=== PATIENT | male | born 1950 | race Two or more races ===

== ENCOUNTER → 2024-07-03 | Outpatient (BNVA) | payer MEDICARE, SELFPAY | END | disposition home or self-care (01) | PROVIDERS: PCP Family Medicine; Referring Provider Family Medicine; Visit Provider Urology | DX: N40.1 Benign prostatic hyperplasia with lower urinary tract symptoms (principal); N13.8 Other obstructive and reflux uropathy; N32.81 Overactive bladder; I12.9 Hypertensive chronic kidney disease with stage 1 through stage 4 chronic kidney disease, or unspecified chronic kidney disease; E11.22 Type 2 diabetes mellitus with diabetic chronic kidney disease; N18.30 Chronic kidney disease, stage 3 unspecified; E66.9 Obesity, unspecified; Z68.28 Body mass index [BMI] 28.0-28.9, adult | CPT/HCPCS: 81003; 99212; G0463 ==

== ENCOUNTER → 2024-08-17 | Outpatient (CLI) | payer MEDICARE, SELFPAY ==
[2024-08-17 10:34] LABS: Basophils % (Auto) 0 % (0-2.5); Eosinophils # (Auto) 0.2 Thou/mm3 (0.0-0.5); Eosinophils % (Auto) 3 % (0-10); Hematocrit 39.1 % (41.0-53.0); Hemoglobin 13.3 g/dL (13.5-16.0); Immature Granulocytes % (Auto) 0 % (0-0); Immature Granulocytes Auto 0.01 Thou/mm3 (0.00-0.00); Lymphocytes # (Auto) 0.9 Thou/mm3 (1.0-4.8); Lymphocytes % (Auto) 18 % (10-50); Mean Corpuscular Volume 82 fL (80-100); Monocytes # (Auto) 0.4 Thou/mm3 (0.0-0.8); Monocytes % (Auto) 8 % (0-12); Neutrophils # (Auto) 3.7 Thou/mm3 (1.8-7.7); Neutrophils % (Auto) 71 % (37-80); Nucleated Red Blood Cell % 0 /100 WBC (0); Platelet Count 195 Thou/mm3 (140-440); RDW Standard Deviation 40.6 fL (35.1-43.9); Red Blood Count 4.75 Miln/mm3 (4.50-5.90); White Blood Count 5.2 Thou/mm3 (3.8-10.6)
[2024-08-17 10:47] LABS: Glucose Estimated Average 194 mg/dL (80-131); Hemoglobin A1C 8.4 % Hgb (4.8-6.0)
[2024-08-17 10:56] LABS: Alanine Aminotransferase 29 U/L (10-49); Albumin, Serum 4.8 gm/dL (3.4-4.8); Alkaline Phosphatase 77 U/L (46-116); Anion Gap 11 (7-16); Aspartate Amino Transferase 20 U/L (0-34); BUN/Creatinine Ratio 24 Ratio (12-20); Bilirubin,Direct 0.2 mg/dL (0.0-0.3); Bilirubin,Total 0.4 mg/dL (0.3-1.2); Blood Urea Nitrogen 36 mg/dL (9-23); Carbon Dioxide 23.5 mMol/L (20.0-31.0); Cardiac Risk Estimate 2.5 RATIO (4.0-6.7); Chloride 104 mMol/L (98-107); Cholesterol 107 mg/dL (132-200); Creatinine (Component) 1.5 mg/dL (0.6-1.3); Glucose 159 mg/dL (74-106); HDL Cholesterol 42 mg/dL (40-60); LDL Cholesterol,Calculated 50 mg/dL (0-130); Osmolality,Calculated 286 (275-295); Potassium 4.4 mMol/L (3.4-5.1); Sodium 138 mMol/L (136-145); Triglycerides 73 mg/dL (30-150); eGFR 49 See Note
== END | disposition home or self-care (01) ==
PROVIDERS: PCP Family Medicine; Referring Provider Internal Medicine Cardiovascular Disease; Visit Provider Internal Medicine Cardiovascular Disease
DX: I10 Essential (primary) hypertension (principal); E13.9 Other specified diabetes mellitus without complications; E78.5 Hyperlipidemia, unspecified; I20.9 Angina pectoris, unspecified
CPT/HCPCS: 36415; 80048; 80061; 80076; 83036; 85025